=== PATIENT | male | born 1970 | race African-American/Black ===

== ENCOUNTER 2023-12-06 08:56 | Emergency (ER) | payer SELFPAY ==
[~2023-12-06] VITALS: Ht 182.9 cm; Wt 75.0 kg
[2023-12-06 09:03] VITALS: O2SAT 98
[2023-12-06] MEDS ORDERED: CYCL10TA21 MT (10:42)
[2023-12-06 11:06] VITALS: BP 125/84; PULSE 86; RESP 18
[2023-12-06] MEDS: IBUPROFEN 600MG TABLET PO ONE (11:06)
[2023-12-06 11:07] VITALS: TEMP 98.1
[2023-12-06] MEDS: LIDOCAINE 5% PATCH TOP SCH (11:07)
[2023-12-06] MEDS: HYDROCODONE/ACETAMINOPHEN 7.5/325MG TABLET PO ONE (11:07)
[2023-12-06] MEDS: ACETAMINOPHEN 325MG TABLET PO ONE (11:07)
== END 2023-12-06 11:15 | disposition home or self-care (01) ==
LOC: ER 08:56
DX: G57.01 Lesion of sciatic nerve, right lower limb (principal); M25.551 Pain in right hip
CPT/HCPCS: 73502; 99284; Z7610 ×2